=== PATIENT | female | born 1950 | race Caucasian/White ===

== ENCOUNTER → 2024-05-30 10:37 | Outpatient (REF) | payer MEDICARE, OTHER, SELFPAY | LOC: HWRAD 10:37 | PROVIDERS: ATTENDING PHYSICIAN Internal Medicine Endocrinology, Diabetes & Metabolism; FAMILY PHYSICIAN Internal Medicine | DX: C73 Malignant neoplasm of thyroid gland (principal) | CPT/HCPCS: 76536 ==

== ENCOUNTER → 2024-06-28 13:38 | Outpatient (REF) | payer MEDICARE, OTHER, SELFPAY ==
[2024-06-28 13:54] VITALS: BP 127/55; BP_SYST 92
== END ==
LOC: RADI 13:38
PROVIDERS: ATTENDING PHYSICIAN Internal Medicine Endocrinology, Diabetes & Metabolism; FAMILY PHYSICIAN Internal Medicine; OTHER PHYSICIAN Surgery
DX: E04.1 Nontoxic single thyroid nodule (principal)
CPT/HCPCS: 88173; 10005